=== PATIENT | female | born 1995 | race African-American/Black ===

== ENCOUNTER 2020-12-06 15:39 | Emergency (ER) | payer BC ==
[~2020-12-06] VITALS: Ht 157.5 cm; Wt 92.5 kg
== END 2020-12-06 16:42 | disposition home or self-care (01) ==
LOC: ER 15:39
DX: U07.1 COVID-19 (principal)
CPT/HCPCS: 99282

== ENCOUNTER → 2021-03-09 | Outpatient (CLI) | payer BC | LOC: LAB 19:34 → LAB SHORT 19:34 | DX: L08.9 Local infection of the skin and subcutaneous tissue, unspecified (principal); B96.6 Bacteroides fragilis [B. fragilis] as the cause of diseases classified elsewhere; B96.89 Other specified bacterial agents as the cause of diseases classified elsewhere | CPT/HCPCS: 87070; 87075; 87076; 87205 ==

== ENCOUNTER → 2023-07-27 | Outpatient (CLI) | payer OTHER ==
[2023-07-27 12:55] LABS: Source, Urine Clean Catch
[2023-07-27 15:24] LABS: Bacteria Mod /hpf; Calcium Oxalate Crystals Many /hpf; Mucus Light (0-Heavy); Red Blood Cells, Urine Not Seen /hpf (0-2); Squamous Epithelial Cells Few /hpf (Few)
== END ==
LOC: LAB SHORT 12:50 → LAB 12:50
PROVIDERS: Advanced Practice Midwife
DX: Z34.81 Encounter for supervision of other normal pregnancy, first trimester (principal)
CPT/HCPCS: 81015; 87086

== ENCOUNTER → 2024-02-04 | Outpatient (CLI) | payer OTHER | LOC: LAB SHORT 12:38 → LAB 12:38 | DX: O99.213 Obesity complicating pregnancy, third trimester (principal); E66.8 Other obesity | CPT/HCPCS: 87081; 87150 ==

== ENCOUNTER 2024-02-21 08:36 | Inpatient (IN) | payer OTHER ==
[2024-02-21] VITALS (30 sets, daily range): BP systolic 113–168; BP diastolic 59–97
[~2024-02-21] VITALS: Ht 157.5 cm; Wt 86.4 kg
[2024-02-21] MEDS ORDERED: FentaNYL Citrate 50 MCG/ML 2 ML Injection IV PRN (09:45)
[2024-02-21] MEDS ORDERED: Ondansetron HCl 2 MG / ML 2ML Vial IV PRN (10:00)
[2024-02-21] MEDS ORDERED: Carboprost Tromethamine 250 MCG/ML 1ML Amp IM PRN ×2 (10:00→18:30)
[2024-02-21] MEDS ORDERED: Oxytocin 10 Unit / ML Vial IM PRN (10:00)
[2024-02-21] MEDS ORDERED: Methylergonovine Maleate 0.2MG / ML 1ML Amp IM PRN (10:00)
[2024-02-21] MEDS ORDERED: Tranexamic Acid 100 ML IV SCH (10:00)
[2024-02-21] MEDS ORDERED: ePHEDrine Sulfate 50 MG/ML 1ML Injection XX PRN (10:00)
[2024-02-21] MEDS ORDERED: FentaNYL 2mcg/ml-Bup 0.1% Epd 250 ML EPI PRN (10:00)
[2024-02-21] MEDS ORDERED: Acetaminophen 500 MG Tab PO PRN ×2 (10:00→18:35)
[2024-02-21] MEDS ORDERED: Misoprostol 200 MCG Tab BC PRN (10:00)
[2024-02-21] MEDS ORDERED: Misoprostol 200 MCG Tab PR PRN ×2 (10:00→18:25)
[2024-02-21] MEDS ORDERED: Calcium Carbonate 500 MG Tab Chew PO SCH ×2 (10:00→14:20)
[2024-02-21 10:07] LABS: BASOPHILS ABSOLUTE AUTO 0.03 K/mm3 (0.00-0.23); BASOPHILS PERCENT AUTO 0 % (0-2); EOSINOPHILS ABSOLUTE AUTO 0.06 K/mm3 (0.00-0.68); EOSINOPHILS PERCENT AUTO 1 % (0-6); Hemoglobin 12.7 g/dL (11.5-16.0); IMMATURE GRAN ABSOLUTE AUTO 0.03 K/mm3 (0.00-0.10); IMMATURE GRAN PERCENT AUTO 0 % (0-1); LYMPHOCYTES ABSOLUTE AUTO 2.12 K/mm3 (0.84-5.20); LYMPHOCYTES PERCENT AUTO 31 % (21-46); MONOCYTES ABSOLUTE AUTO 0.53 K/mm3 (0.16-1.47); MONOCYTES PERCENT AUTO 8 % (4-13); Mean Corpuscular HGB Conc 34.3 g/dL (31.5-36.5); Mean Corpuscular Volume 87 fL (80-100); Mean Platelet Volume 10.9 fL (9.1-12.4); NEUTROPHILS ABSOLUTE AUTO 4.08 K/mm3 (1.96-9.15); NEUTROPHILS PERCENT AUTO 60 % (41-73); Platelet Count 252 K/mm3 (150-400); RDW Coefficient Variation 13.2 % (11.7-14.2); RDW Standard Deviation 41.7 fL (35.1-46.3); Red Blood Cell Count 4.24 M/mm3 (3.80-5.20); White Blood Cell Count 6.85 K/mm3 (4.00-11.30)
[2024-02-21] MEDS ORDERED: Oxytocin 10 Unit / ML Vial IV SCH (11:05)
[2024-02-21] MEDS ORDERED: NS 1,000 ML IV SCH ×2 (11:10→14:20)
[2024-02-21] MEDS ORDERED: NS 1,000 ML IV ONE (11:55)
[2024-02-21] MEDS ORDERED: ePHEDrine Sulfate 50 MG/ML 1ML Injection IV PRN (13:45)
[2024-02-21] MEDS ORDERED: Ketorolac Tromethamine 30mg Vial IV PRN (18:30)
[2024-02-21] MEDS ORDERED: Docusate Sodium 100 MG Cap PO PRN (18:30)
[2024-02-21] MEDS ORDERED: Witch Hazel/Glycerin PADS TOP PRN (18:30)
[2024-02-21] MEDS ORDERED: Lanolin Cream TOP PRN (18:30)
[2024-02-21] MEDS ORDERED: Ibuprofen 400 MG Tab PO PRN (18:30)
[2024-02-21] MEDS ORDERED: Lactated Ringer's 1,000 ML IV SCH (18:30)
[2024-02-21] MEDS ORDERED: Rho(D) Immune Globulin 300 MCG / SYR IM ONE (18:35)
[2024-02-21] MEDS ORDERED: Benzocaine Topical Anesthetic Spray 60GM TOP PRN (18:35)
[2024-02-21] MEDS ORDERED: OXYTOCIN/RINGER'S LACTATE 500 ML IV SCH (19:10)
[2024-02-22 03:47] VITALS: BP 133/83
[2024-02-22 08:50] VITALS: BP 135/66
[2024-02-22] MEDS ORDERED: Prenatal Vit/FE Fumarate/FA 1 Tab PO SCH (09:00)
[2024-02-22] MEDS ORDERED: Calcium Carbonate 500 MG Tab Chew PO SCH (10:00)
[2024-02-22] MEDS ORDERED: NS 1,000 ML IV SCH (11:10)
[2024-02-22 13:49] VITALS: BP 143/76
--- NOTE | 2024-02-22 19:59 | NUR ---
RN WENT OVER DISCHARGE PAPERS AND SIGNED ALL DOCUMENTS. RN DOUBLE CHECKED BANDS WITH MOB AND CUT OFF AFTER VERIFICATION. RN THEN WATCHED FOB PLACE IN CARSEAT. RN WALKED MOB, FOB, IN CARSEAT, AND OTHER FAMILY MEMBERS OUT TO CAR. RN WATCHED FOB PLACE IN CARSEAT IN VEHICLE. RN EXPLAINS IF THEY HAVE ANY QUESTIONS OR CONCERNS TO CALL [facility] OR THEIR DOCTOR.
== END 2024-02-22 19:20 | disposition home or self-care (01) | DRG 807 ==
LOC: BC 08:36 → OBS 08:36 → BC 08:38 → OBS 09:39 → BC 09:41
PROVIDERS: ADMIT Obstetrics & Gynecology
PROC: 10E0XZZ Delivery of Products of Conception, External Approach (ICD-10-PCS; principal; 2024-02-21)
PROC: 3E0R3BZ Introduction of Anesthetic Agent into Spinal Canal, Percutaneous Approach (ICD-10-PCS; 2024-02-21)
PROC: 00HU33Z Insertion of Infusion Device into Spinal Canal, Percutaneous Approach (ICD-10-PCS; 2024-02-21)
DX: O13.4 Gestational [pregnancy-induced] hypertension without significant proteinuria, complicating childbirth (principal); Z37.0 Single live birth; Z3A.38 38 weeks gestation of pregnancy; Z88.8 Allergy status to other drugs, medicaments and biological substances; Z91.040 Latex allergy status; O99.214 Obesity complicating childbirth; O99.344 Other mental disorders complicating childbirth; F41.8 Other specified anxiety disorders; Z98.890 Other specified postprocedural states
CPT/HCPCS: 36415; 51702; 85025; 86850; 86900; 86901; A9270; J1885; J2405; J7030

== ENCOUNTER → 2024-06-30 | Outpatient (CLI) | payer OTHER | END | disposition home or self-care (01) | LOC: LAB SHORT 11:27 → LAB 11:27 | DX: N75.0 Cyst of Bartholin's gland (principal) | CPT/HCPCS: 87070; 87205 ==

== ENCOUNTER 2024-09-12 06:22 | Day surgery (SDC) | payer OTHER ==
[2024-09-12] VITALS (13 sets, daily range): BP systolic 119–147; BP diastolic 61–82
[~2024-09-12 06:22] MED LIST: LOMAIRA8 MG
[2024-09-12] MEDS ORDERED: Lactated Ringer's 1,000 ML IV SCH (06:55)
[2024-09-12] MEDS ORDERED: NS 1,000 ML IV SCH (06:55)
[2024-09-12] MEDS ORDERED: Lidocaine 1%-Epineph 1:200000 30 ML SDV ONE (07:08)
[2024-09-12] MEDS ORDERED: propofoL 20 ML IV ONE (07:16)
[2024-09-12] MEDS ORDERED: FentaNYL Citrate 50 MCG/ML 2 ML Injection ONE ×2 (07:16→08:35)
[2024-09-12] MEDS ORDERED: HYDROmorphone HCl/Pf 1MG SYR IV PRN ×2 (07:55→08:00)
[2024-09-12] MEDS ORDERED: FentaNYL Citrate 50 MCG/ML 2 ML Injection IV PRN ×2 (07:55→08:00)
[2024-09-12] MEDS ORDERED: Labetalol HCL 5 MG/ML 4ML Injection (Single Dose) IV PRN (08:00)
[2024-09-12] MEDS ORDERED: Prochlorperazine Edisylate 10 mg Vial IV PRN (08:00)
[2024-09-12] MEDS ORDERED: Ondansetron HCl 2 MG / ML 2ML Vial IV PRN (08:00)
[2024-09-12] MEDS ORDERED: Dexamethasone Sod Phos 10 MG/ML 1ML VIAL ONE (08:29)
[2024-09-12] MEDS ORDERED: Ondansetron HCl 2 MG / ML 2ML Vial ONE ×2 (08:29→08:58)
[2024-09-12] MEDS ORDERED: Lidocaine HCl 2% 20 ML MDV ONE (08:29)
[2024-09-12] MEDS ORDERED: Prochlorperazine Edisylate 10 mg Vial ONE (09:22)
--- NOTE | 2024-09-12 10:34 | NUR ---
PT REPORTS RECENTLY SAT UP TO TRY AND GO TO BATHROOM BUT GOT NAUSEOUS. PT REPORTS NOW WANTING TO TRY AGAIN. PT TO RESTROOM WITH OTHER FEMALE RN Mateus.
--- NOTE | 2024-09-12 10:48 | NUR ---
Patient up to Ambulate independently. Gait steady. Discharge instructions reviewed with patient. Patient verbalizes understanding. Copy given to patient to take home. Patient States Post-Procedure ride home has been arranged. PT UP TO BATHROOM WITH OTHER RN MRhysH.. PT ABLE TO GET DRESSED IN BATHROOM. PT REPORTED READY TO GO HOME "A LITTLE NAUSEA BUT I THINK I'LL BE BETTER AFTER TAKING A NAP". IV OUT. PT TO FOR RIDE TO CAR. PT BECAME NAUSEOUS AGAIN.
--- NOTE | 2024-09-12 10:49 | NUR ---
PT BACK TO BED AND LYING DOWN. VSS. PT DECLINES NAUSEA MEDICATION AT THIS TIME. PT REPORTS THAT SHE WAS JUST UP AND WAS ABLE TO GET DRESSED AND EVERYTHING, REPORTS JUST GOT NAUSEA WITH THE WC MOVING.
--- NOTE | 2024-09-12 10:50 | NUR ---
CHANGE AGENT ASSISTING WITH PT.
--- NOTE | 2024-09-12 11:00 | NUR ---
Pt was up in wheelchair getting ready to discharge home got to pimentel outside of [facility] and met pt as we were pushing her out to him, pt then started vomiting and got very nauseous again and the asked what was wrong. "The pt stated they gave me fentanyl in the OR and its causing me to be sick", got very upset and yelled why did they give you fentanyl, I stepped in and calmly told the that it was part of the anesthesia for the pts procedure, He began to yell at me that Fentanyl kills people and dont tell me some bull shit story that hospital Fentanyl is different from the shit on the streets". I then looked at the pt who cont to dry heave and told the to wait in the waiting room because I could not send a pt home puking like this. did head back out to waiting area with and elementry school aged son. Ellyn called to unit and Dr. Epstein anesthesia also here to talk with pt, when pt was asked her husbands name she said please don't talk to him I do not want him to yell at you and she began to cry. I asked pt if she was safe to go home with her and she said yes she just didnt want him to escalate and began yelling at all the staff, Ellyn and Dr. Epstein talked with pt reassured her and then talked with ,responce was de-escalated to the best of Ellyn and Dr. Epstein ability pt was then assessed and found to have nausea resolving and pt asked to go that she felt better. pt discharged and wc out to car by Bryan HUMPHREY
--- NOTE | 2024-09-12 11:25 | NUR ---
PT REPORTS READY TO GO HOME, REPORTS NAUSEA BETTER. Discharged via wheelchair to private car for ride home. PT TOLERATED WC RIDE WITHOUT DIFFICULTY. PT ABLE TO WALK FROM HOSPITAL DOORS TO CAR WITHOUT DIFFICULTY. PT REPORTS WILL CONTACT DR IF NAUSEA COMES BACK.
== END 2024-09-12 23:00 | disposition home or self-care (01) ==
LOC: ORD 06:22 → ORSCMMR 06:22 → ORD 06:23 → ORSCMMR 06:23 → ORD 07:30 → ORSCMMR 23:00
PROVIDERS: Obstetrics & Gynecology
PROC: 0UBLXZZ Excision of Vestibular Gland, External Approach (ICD-10-PCS; principal; 2024-09-12 07:30)
DX: N75.1 Abscess of Bartholin's gland (principal); J45.909 Unspecified asthma, uncomplicated; G47.33 Obstructive sleep apnea (adult) (pediatric); Z79.899 Other long term (current) drug therapy
CPT/HCPCS: 88304; J0780; J1100; J2405; J2704; J3010; J7030